=== PATIENT | male | born 1995 ===

== ENCOUNTER 2018-04-07 15:07 | Inpatient (IN) | payer SELFPAY ==
--- NOTE | 2018-04-07 15:57 | C.PDOC ---
History Of Present Illness 22 year old male presents to the ED requesting heroin and cocaine detox. Patient also verbalizes suicidal ideation. He denies homicidal ideation and has no other complaints at this time. Time Seen by Provider: 04/07/18 15:46 Chief Complaint (Nursing): Substance Abuse History Per: Patient History/Exam Limitations: no limitations Onset/Duration Of Symptoms: Hrs Current Symptoms Are (Timing): Still Present Suicide/Self Injury Attempted (Context): None Modifying Factor(s): Narcotics (heroin ), Cocaine Associated Symptoms: Suicidal Thoughts. denies: Suicidal Plan Involuntary Hold By: None Recent travel outside of the [place]: No Additional History Per: Patient Past Medical History Reviewed: Historical Data, Nursing Documentation, Vital Signs Vital Signs: Last Vital Signs Temp 98.4 F 04/07/18 18:21 Pulse 75 04/07/18 18:21 Resp 18 04/07/18 18:21 BP 126/75 04/07/18 18:21 Pulse Ox 100 04/07/18 18:21 - Medical History PMH: No Chronic Diseases Surgical History: No Surg Hx Family History: States: Unknown Family Hx - Social History Hx Alcohol Use: No Hx Substance Use: Yes - Immunization History Hx Tetanus Toxoid Vaccination: No Hx Influenza Vaccination: No Hx Pneumococcal Vaccination: No Review Of Systems Psych: Positive for: Other (heroin and cocaine detox ). Negative for: Suicidal ideation Physical Exam - Physical Exam Appears: Non-toxic, No Acute Distress Skin: Normal Color, Warm, Dry Head: Atraumatic, Normacephalic Eye(s): bilateral: Normal Inspection Oral Mucosa: Moist Neck: Supple Chest: Symmetrical, No Deformity, No Tenderness Cardiovascular: Rhythm Regular Respiratory: Normal Breath Sounds, No Rales, No Rhonchi, No Wheezing Extremity: Normal ROM, Capillary Refill (less than 2 seconds) Neurological/Psych: Oriented x3, Normal Speech, Normal Cognition ED Course And Treatment - Laboratory Results Result Diagrams: 04/07/18 16:34 04/07/18 16:34 O2 Sat by Pulse Oximetry: 99 (on RA) Pulse Ox Interpretation: Normal Progress Note: Patient has been medically cleared and was evaluated by ornamental ironworker. Patient will be admitted to psychiatry for suicidal ideation and drug abuse. Disposition - Disposition Disposition: HOSPITALIZED Disposition Time: 18:00 Condition: STABLE - Clinical Impression Clinical Impression: Major depression, Suicidal ideations, Opiate dependence - PA / SENIOR RESERVOIR ENGINEER / Resident Statement MD/DO has reviewed & agrees with the documentation as recorded. - Scribe Statement The provider has reviewed the documentation as recorded by the Scribe (Emily Malagon) All medical record entries made by the Scribe were at my direction and personally dictated by me. I have reviewed the chart and agree that the record accurately reflects my personal performance of the history, physical exam, medical decision making, and the department course for this patient. I have also personally directed, reviewed, and agree with the discharge instructions and disposition. Decision To Admit - Pt Status Changed To: Hospital Disposition Of: Inpatient - Admit Certification Admit to Inpatient:: After my assessment, the patient will require hospitalization for at least two midnights. This is because of the severity of symptoms shown, intensity of services needed, and/or the medical risk in this patient being treated as an outpatient. - InPatient: Physician Admission Certification: I certify that this patient requires 2 or more midnights of care for the following reason:: will need more than 2 days of psychiatric and detox treatment - . Bed Request Type: Psychiatry Patient Diagnosis: Major depression, Suicidal ideations, Opiate dependence
[2018-04-07 16:40] LABS: BASO % 0.8 % (0.0-2.0); EOS # 0.1 K/uL (0.0-0.7); HEMOGLOBIN 15.3 g/dL (12.0-18.0); LYMPH % 39.3 % (20.0-40.0); MEAN CORPUSCULAR HEMOGLOBIN 28.2 pg (27.0-31.0); MEAN CORPUSCULAR HGB CONC 33.2 g/dL (33.0-37.0); MEAN PLATELET VOLUME 7.6 fL (7.2-11.7); MONO # 0.6 K/uL (0.0-0.8); MONO % 10.8 % (0.0-10.0); NEUT # 2.4 K/uL (1.8-7.0); NEUT % 47.1 % (50.0-75.0); NRBC % 0.1 % (0.0-2.0); RBC 5.44 Mil/uL (4.40-5.90); RED CELL DISTRIBUTION WIDTH 14.9 % (11.5-14.5); WHITE BLOOD COUNT 5.1 K/uL (4.8-10.8)
[2018-04-07 16:53] LABS: URINE AMORPHOUS SEDIMENT OCC /ul (<OCC); URINE BILIRUBIN NEGATIVE (NEGATIVE); URINE BLOOD NEGATIVE (NEGATIVE); URINE CLARITY Turbid (Clear); URINE COLOR Yellow (YELLOW); URINE GLUCOSE (UA) NORMAL (Normal); URINE LEUKOCYTE ESTERASE NEG Leu/uL (Negative); URINE PROTEIN NEGATIVE (NEGATIVE)
[2018-04-07 17:06] LABS: ALB/GLOB RATIO 1.6 (1.0-2.1); ALBUMIN 4.5 g/dL (3.5-5.0); ALT/SGPT 195 U/L (21-72); AST/SGOT 78 U/L (17-59); BLOOD UREA NITROGEN 15 mg/dL (9-20); CALCIUM 9.4 mg/dl (8.6-10.4); GFR AFRICAN-AMERICAN > 60; GFR NON-AFRICAN AMERICAN > 60
[2018-04-07 17:07] LABS: BARBITURATES, UR NEGATIVE (NEGATIVE); BENZODIAZEPINES, UR NEGATIVE (NEGATIVE); OPIATES, UR POSITIVE (NEGATIVE); PHENCYCLIDINE, UR NEGATIVE (NEGATIVE)
[2018-04-08] MEDS: buPROPion 150 mg/24 Hours XL Tab PO SCH (14:30)
--- NOTE | 2018-04-08 18:53 | PCM.PSYCH ---
Initial Psychiatric Evaluation - Initial Psychiatric Evaluation Type of Admission: Voluntary Legal Status: Capacity History of Present Illness and Precipitating Events: Pt is 22 years old male admitted to hospital for depression and SI. Pt reports S/I with a plan to "jump in front of a train." Pt states that his cousin was in 2015 after MVA. He states he is feeling depressed, and blames himself for his . He states that he has flash back memories and nightmare about the incident. He states that he is using drugs to stay calm. He states he hears his cousin voice who is calling him for the help. Pt reported that people are following him and will hurt him. Pt contracted hospital for safety. Pt reports depressed mood, with anhedonia, difficulty in sleep, focus, a 20lb weight loss within the past year. [place] in 2016. 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 Pt reports being homeless. Pt reports a 2016 attempt via hanging and an attempt to jump in front of a train last week. Pt also requesting detox. Pt reports using four bags of heroin daily intravenously, last use 04/06/18. Pt reports using approximately $40 worth of cocaine daily intravenously, last use 04/06/18. Pt reports drinking 1 pint of rum, not often, last use in 03/2018. Pt reports smoking two $15 bags of K2 daily, last use today 04/07/18. Pt reports taking 4mg of suboxone today, 04/07/18, for the first time. Pt reports smoking 1 pack of cigarettes per day. Pt reports one previous psych admission at [facility] in [place]. Pt denies taking any medication. Pt denies H/I. Pt denies abuse. Pt denies hallucinations. Pt reports four arrests: 03/2018, 02/2018, and two other times in 2018 (pt unable to recall when) for fare evasion (pt says he offers to swipe people on the train with his metrocard in exchange for [employer]). Pt denies history of incarcerations. Current Medications: Active Medications Generic Name Dose Route Start Last Admin Trade Name Freq PRN Reason Stop Dose Admin Al Hydrox/Mg Hydrox/Simethicone 30 ml 04/07/18 22:24 Maalox 30 Ml PO TID PRN Indigestion / Heartburn Bupropion HCl 150 mg 04/08/18 13:00 04/08/18 14:30 Wellbutrin Xl PO 150 mg DAILY MILTON Administration Clonidine HCl 0.1 mg 04/07/18 22:24 Catapres PO Q8 PRN COWS Score More or Equal to 5 Dicyclomine HCl 10 mg 04/07/18 22:24 Bentyl PO Q6 PRN ABDOMINAL CRAMPS Gabapentin 300 mg 04/07/18 22:30 04/08/18 17:47 Neurontin PO 300 mg BID MILTON Administration Hydroxyzine HCl 25 mg 04/07/18 22:27 Atarax PO Q6 PRN Anxiety Ibuprofen 400 mg 04/07/18 22:26 Motrin Tab PO Q6 PRN Pain, moderate (4-7) Loperamide HCl 2 mg 04/07/18 22:24 Imodium PO Q8 PRN Diarrhea Ondansetron HCl 4 mg 04/07/18 22:24 Zofran Tab PO Q8 PRN Nausea/Vomiting Quetiapine Fumarate 100 mg 04/08/18 22:00 Seroquel PO HS MILTON Trazodone HCl 50 mg 04/08/18 13:04 Desyrel PO HS PRN Insomnia Past Psychiatric History - Past Psychiatric History Previous Treatment History: Inpatient Explanation of prior treatment: Medication management History of Abuse: denied History of ETOH/Drug Use: please see HPI History of Family Illness: mother is suffering from depression Pertinent Medical Hx (Current Medical&Sleep Prob, Allergies): Allergies Allergy/AdvReac Type Severity Reaction Status Date / Time No Known Allergies Allergy Unverified 04/07/18 15:16 No Known Home Med 04/07/18 Review of Systems - Review of Systems All systems: reviewed and no additional remarkable complaints except (please see HPI) Mental Status Examination - Personal Presentation Personal Presentation: Looks younger than stated age, Dressed appropriate to season Additional comments: disheveled - Affect Affect: Constricted - Motor Activity Motor Activity: Psychomotor Agitation - Reliability in Providing Information Reliability in Providing Information: Fair - Speech Speech: Organized - Mood Mood: Depressed, Anxious - Formal Thought Process Formal Thought Process: Hallucinations - Hallucinations/Delusions Hallucinations: Auditory - Obsessions/Compulsions Obsessions: None Compulsions: None - Cognitive Functions Orientation: Person, Place, Situation, Time Sensorium: Alert Attention/Concentration: Attentive Abstract Thinking: [place] Estimate of Intelligence: Average Judgement: Intact, as evidence by: Good judgement, Intact, as evidence by: Insight regarding need for hospitalization Memory: Recent intact, as evidence by: Ability to recall events of the day - Risk Risk: Diminished functioning - Strength & Assets Inventory Strength & Assets Inventory: Family support, Cooperative - Limitations Limitations: Other (chronic substance abuse) DSM 5 DX - DSM 5 DSM 5 Diagnosis: MDD Recurrent, severe with psychosis PTSD - Recommended/Plan of Treatment Treatment Recommendations and Plan of Treatment: Start Wellbutrin for depression Start Methadone taper for opioid detox Seroquel for mood stabilization and Psychosis Psychoeducation provided Supportive therpay provided Medication, benefits, side effects discussed with the pt. He verbalized understanding and agree with the treatment plan. Consider and encourage MAT Refer to after care plan Time Spend 33 Projected ELOS: 5-7 days Prognosis: guarded - Smoking Cessation Smoking Cessation Initiated: Yes
[2018-04-09] MEDS: buPROPion 150 mg/24 Hours XL Tab PO SCH ×2 (09:12→09:14)
--- NOTE | 2018-04-09 09:55 | PCM.PYCHPN ---
Psychiatric Progress Note - Psychiatric Progress Note Patient seen today, length of contact: 15 min Patient Chief Complaint: I am feeling sofía Medication Change: Yes (Methadone taper) Medical Record Reviewed: Yes Mental Status Examination - Cognitive Function Orientation: Person, Place, Situation, Time Memory: Intact Attention: WNL Concentration: Poor Association: WNL Fund of Knowledge: Poor - Mood Mood: Depressed, Anxious - Affect Affect: Constricted - Speech Speech: Soft - Formal Thought Process Formal Thought Process: No Impairment - Suicidal Ideation Suicidal Ideation: No - Homicidal Ideation Homicidal Ideation: No Goal/Treatment Plan - Goal/Treatment Plan Need for Continued Stay: Severe depression anxiety, Severe functional impairment Progress Toward Problem(s) and Goals/Treatment Plan: MDD Recurrent, severe with psychosis PTSD Opioid use severe Opioid withdrawal Start Wellbutrin for depression Start Methadone taper for opioid detox Seroquel for mood stabilization and Psychosis Psychoeducation provided Supportive therpay provided Medication, benefits, side effects discussed with the pt. He verbalized understanding and agree with the treatment plan. Consider and encourage MAT Refer to after care plan
[2018-04-10 06:43] VITALS: RESP 20
[2018-04-10] MEDS: buPROPion 150 mg/24 Hours XL Tab PO SCH (09:21)
--- NOTE | 2018-04-10 15:17 | PCM.BM ---
<Cristina Contreras - Last Filed: 04/10/18 15:15> Treatment Plan Problems - Problems identified on initial assessmt Depression Date Initiated: 04/10/18 Time Initiated: 15:16 Assessment reference: NA Status: Active Substance Abuse Date Initiated: 04/10/18 Time Initiated: 15:16 Assessment reference: NA Status: Active Treatment assets and liabiliti Patient Assests: adapts well, cooperative, educated, ADL independent, physically healthy, negotiates basic needs, cognitively intact Patient Liabilities: financial problems, substance abuse (Opiates), medical problems - Milieu Protocol Maintain good personal hygiene: daily Encourage regular showers, daily Remind patient to perform daily oral care, daily Assist patient to perform ADL's (Self) Maintain personal safety: every shift Educate patient to report safety concerns to staff, every shift Monitor environment for contraband/sharps Medication safety: Monitor for expected outcome, potential side effects: every shift, Assess barriers to learning: every shift, Assess readiness for medication education: every shift Milieu Narrative: Start Wellbutrin for depression Start Methadone taper for opioid detox Seroquel for mood stabilization and Psychosis Psychoeducation provided Supportive therpay provided Medication, benefits, side effects discussed with the pt. He verbalized understanding and agree with the treatment plan. Consider and encourage MAT Refer to after care plan Time Spend 33 Discharge/Continuing Care - Treatment Team Participation Patient/Family/SO Statement: Start Wellbutrin for depression Start Methadone taper for opioid detox Seroquel for mood stabilization and Psychosis Psychoeducation provided Supportive therpay provided Medication, benefits, side effects discussed with the pt. He verbalized understanding and agree with the treatment plan. Consider and encourage MAT Refer to after care plan Time Spend 33 <Catia Kahn - Last Filed: 04/10/18 15:42> Family Contact Family involvement: Family/SO is involved Family contact: Patient declines to allow family contact at present - Goals for Treatment Patient goals for treatment: "I want to be referred to an outpatient program." Discharge/Continuing Care - Education Needs Education Needs: Patient Medication, Patient Diagnosis/Disease Process, Patient Coping Skills, Patient Anger Management skills, Patient Placement options, Patient Community resources - Discharge Discharge Criteria: Free of Suicidal thoughts, Free of agitation, Normal sleep pattern, Ability to care for self, No longer exhibiting s/s of withdrawal, Reduction of target symptoms Discharge to:: Home, With Family - Treatment Team Participation Discussed with Family/SO: No Was Patient/Family/SO present at Treatment Team Meeting: Yes <Wiley Marrero - Last Filed: 04/11/18 03:54> - Diagnosis (1) Major depression Status: Acute Interventions: 04/11/18 03:53 * Assess/adjust medications daily and /or as needed * See patient on an individual basis 7x/week to assess symptoms of depression * Monitor for side effects & effectiveness of medications * (2) Opiate dependence Status: Acute Interventions: 04/11/18 03:53 * Assess 7x/week regarding severity of withdrawal * Educate regarding risks, benefits, side effects and alternatives of medications * Use Motivational Interviewing for abstinence * Use CBT for relapse prevention * Medication management for withdrawal symptoms * Encourage medication assisted treatment *
[2018-04-11] MEDS: Aluminum Hydroxide/Magnesium Hydroxide Susp (30 mL) PO PRN (05:28)
[2018-04-11 06:40] VITALS: O2SAT 100
--- NOTE | 2018-04-11 14:37 | PCM.PYCHPN ---
Psychiatric Progress Note - Psychiatric Progress Note Patient seen today, length of contact: 15 min Patient Chief Complaint: I'm feeling much better. Problems Identified/Issues Discussed: Patient seen, chart reviewed, case was discussed with the staff. Issues related to illness and treatment were discussed with the staff and the patient. Reported compliant with treatment with no adverse effects. Tolerating treatment very well. Patient reported feeling much better. Patient was calm and cooperative. Risks and benefits of medications were discussed with the patient. After clear discussed with patient. At the time of evaluation, patient was awake alert oriented x3, no delusions, no auditory hallucination or visual hallucinations, no suicidal or homicidal ideations. Medical Problems: None reported Diagnostic Results: Reviewed DSM 5 Symptoms Update: Improving with treatment Medication Change: No Medical Record Reviewed: Yes Mental Status Examination - Cognitive Function Orientation: Person, Place, Situation, Time Memory: Intact Attention: WNL Concentration: WNL Association: WN Fund of Knowledge: [facility] Decription of patient's judgement and insights: Fair - Mood Mood: Depressed - Affect Affect: Other (Appropriate) - Speech Speech: Soft - Formal Thought Process Formal Thought Process: No Impairment Psychotic Thoughts and Behaviors: None - Suicidal Ideation Suicidal Ideation: No - Homicidal Ideation Homicidal Ideation: No Goal/Treatment Plan - Goal/Treatment Plan Need for Continued Stay: Remain at risks for inpatient hospitalization, Discharge may exacerbated symptoms, Severe functional impairment Progress Toward Problem(s) and Goals/Treatment Plan: Improving. Patient education. Supportive therapy. Continue treatment as before. Estimated Date of D/C: 04/13/18 - Smoking Cessation Smoking Cessation Initiated: No
[2018-04-12] MEDS: Aluminum Hydroxide/Magnesium Hydroxide Susp (30 mL) PO PRN (08:34)
--- NOTE | 2018-04-12 17:57 | PCM.PYCHPN ---
Psychiatric Progress Note - Psychiatric Progress Note Patient seen today, length of contact: 15 min Patient Chief Complaint: I'm feeling much better. Problems Identified/Issues Discussed: Patient seen, chart reviewed, case was discussed with the staff. Issues related to illness and treatment were discussed with the staff and the patient. Reported compliant with treatment with no adverse effects. Tolerating treatment very well. Patient reported feeling much better. Patient was calm and cooperative. Risks and benefits of medications were discussed with the patient. After clear discussed with patient. At the time of evaluation, patient was awake alert oriented x3, no delusions, no auditory hallucination or visual hallucinations, no suicidal or homicidal ideations. Medical Problems: None reported Diagnostic Results: Reviewed DSM 5 Symptoms Update: Improving with treatment Medication Change: No Medical Record Reviewed: Yes Mental Status Examination - Cognitive Function Orientation: Person, Place, Situation, Time Memory: Intact Attention: WNL Concentration: WNL Association: WN Fund of Knowledge: [facility] Decription of patient's judgement and insights: Fair - Mood Mood: Neutral - Affect Affect: Other (Appropriate) - Speech Speech: Soft - Formal Thought Process Formal Thought Process: No Impairment Psychotic Thoughts and Behaviors: None - Suicidal Ideation Suicidal Ideation: No - Homicidal Ideation Homicidal Ideation: No Goal/Treatment Plan - Goal/Treatment Plan Need for Continued Stay: Remain at risks for inpatient hospitalization, Discharge may exacerbated symptoms, Severe functional impairment Progress Toward Problem(s) and Goals/Treatment Plan: Improving. Patient education. Supportive therapy. Continue treatment as before. Estimated Date of D/C: 04/13/18 - Smoking Cessation Smoking Cessation Initiated: No
[2018-04-13 06:23] VITALS: BP 117/69; PULSE 57; TEMP 98.2
[2018-04-13] MEDS: Aluminum Hydroxide/Magnesium Hydroxide Susp (30 mL) PO PRN (10:11)
--- NOTE | 2018-04-13 10:46 | PCM.PYCHDC ---
Mental Status Examination - Mental Status Examination Orientation: Person, Place, Situation, Time Memory: Intact Mood: Neutral Affect: Constricted Speech: Soft Attention: WNL Concentration: WNL Association: WNL Fund of Knowledge: WNL Formal Thought Process: No Impairment Description of patient's judgement and insight: good, fair Psychotic Thoughts and Behaviors: denies any AVH Suicidal Ideation: No Current Homicidal Ideation?: No Discharge Summary - Discharge Note Reason for Hospitalization: Pt is 22 years old male admitted to hospital for depression and SI. Pt reports S/I with a plan to "jump in front of a train." Pt states that his cousin was in 2014 after MVA. He states he is feeling depressed, and blames himself for his . He states that he has flash back memories and nightmare about the incident. He states that he is using drugs to stay calm. He states he hears his cousin voice who is calling him for the help. Pt reported that people are following him and will hurt him. Pt contracted hospital for safety. Pt reports depressed mood, with anhedonia, difficulty in sleep, focus, a 20lb weight loss within the past year. [place] in 2016. 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 Pt reports being homeless. Pt reports a 2016 attempt via hanging and an attempt to jump in front of a train last week. Pt also requesting detox. Pt reports using four bags of heroin daily intravenously, last use 04/06/18. Pt reports using approximately $40 worth of cocaine daily intravenously, last use 04/06/18. Pt reports drinking 1 pint of rum, not often, last use in 03/2018. Pt reports smoking two $15 bags of K2 daily, last use today 04/07/18. Pt reports taking 4mg of suboxone today, 04/07/18, for the first time. Pt reports smoking 1 pack of cigarettes per day. Pt reports one previous psych admission at [facility] in [place]. Pt denies taking any medication. Pt denies H/I. Pt denies abuse. Pt denies hallucinations. Pt reports four arrests: 03/2018, 02/2018, and two other times in 2018 (pt unable to recall when) for fare evasion (pt says he offers to swipe people on the train with his metrocard in exchange for [employer]). Pt denies history of incarcerations. Consultations:: List each consultation separately and include: 1. Reason for request. 2. Findings. 3. Follow-up Summary of Hospital Course include:: 1. Description of specific treatment plan utilized for patients during their course of treatmen. 2. Summarize the time- course for resolution of acute symptoms and/or regressed behaviors. 3. Describe issues identified and worked on during hospitalization. 4. Describe medication utilized. 5. Describe medical problems identified and treated. 6. Reassessment of suicide risk - Diagnosis (1) Major depression Current Visit: Yes Status: Acute (2) Opiate dependence Current Visit: Yes Status: Acute - Final Diagnosis (DSM 5) Condition upon Discharge: STABLE DSM 5: MDD Recurrent, severe with psychosis PTSD Disposition: HOME/ ROUTINE Follow-up Treatment Plan: MDD Recurrent, severe with psychosis PTSD Opioid use severe Opioid withdrawal Start Wellbutrin for depression Start Methadone taper for opioid detox Seroquel for mood stabilization and Psychosis Psychoeducation provided Supportive therpay provided Medication, benefits, side effects discussed with the pt. He verbalized understanding and agree with the treatment plan. Consider and encourage MAT Refer to after care plan Prescriptions/Medication Reconciliation: Gabapentin [Neurontin] 300 mg PO BID #60 cap traZODone [Desyrel] 50 mg PO HS PRN #30 tab PRN Reason: Insomnia
== END 2018-04-13 11:46 | disposition home or self-care (01) | DRG 885 ==
LOC: C.ER 15:07 → C.5E 17:59
PROC: HZ2ZZZZ Detoxification Services for Substance Abuse Treatment (ICD-10-PCS; principal; 2018-04-07)
DX: F33.3 Major depressive disorder, recurrent, severe with psychotic symptoms (principal); F11.23 Opioid dependence with withdrawal; R45.851 Suicidal ideations; F17.210 Nicotine dependence, cigarettes, uncomplicated; Z59.0 Homelessness; F43.10 Post-traumatic stress disorder, unspecified